=== PATIENT | male | born 1960 | race Two or more races ===

== ENCOUNTER 2023-02-23 10:37 | Emergency (ER) | payer OTHER ==
[~2023-02-23] VITALS: Ht 185.4 cm; Wt 63.5 kg
[2023-02-23] MEDS ORDERED: CLONAZEPAM1 MG PO (11:15)
== END 2023-02-23 15:23 ==
LOC: ER 10:37
DX: G44.009 Cluster headache syndrome, unspecified, not intractable (principal); F20.89 Other schizophrenia